=== PATIENT | female | born 1995 ===

== ENCOUNTER → 2021-09-03 12:06 | Outpatient (CLI) | payer OTHER, SELFPAY ==
--- NOTE | 2021-09-03 12:13 | DI.MG.S_ITS ---
UNILATERAL LEFT DIGITAL SCREENING MAMMOGRAM 3D/2D WITH CAD: 09/03/2021 CLINICAL: Left breast pain. No prior exams were available for comparison. The tissue of left breast is extremely dense, which lowers the sensitivity of mammography. Current study was also evaluated with a Computer Aided Detection (CAD) system. There is a focal asymmetry in the left breast at 3 o'clock middle depth. No other significant masses or calcifications are seen in the breast. IMPRESSION: INCOMPLETE: NEEDS ADDITIONAL IMAGING EVALUATION The focal asymmetry in the left breast is indeterminate. An ultrasound is recommended. This exam was interpreted at Station ID: [id number]. NOTE: For mammograms, a report in lay terms will be sent to the patient. Approximately 15% of breast malignancies will not be visualized mammographically. In the management of a palpable breast mass, a negative mammogram must not discourage biopsy of a clinically suspicious lesion. Electronically Signed By: Immanuel Cramer M.D., jr/micaela:09/03/2021 13:07:12 letter sent: Additional Imaging Needed ACR BI-RADS Category 0: Incomplete [id number]
== END ==
PROVIDERS: PCP Physician Assistant; Referring Provider Physician Assistant; Visit Provider Physician Assistant
DX: N64.4 Mastodynia (principal); N64.89 Other specified disorders of breast
CPT/HCPCS: 77063; 77067

== ENCOUNTER → 2021-09-26 15:09 | Outpatient (CLI) | payer OTHER, SELFPAY ==
--- NOTE | 2021-09-26 | DI.US.S_ITS ---
LIMITED ULTRASOUND OF LEFT BREAST AND AXILLA: 09/26/2021 CLINICAL: Patient returns today to evaluate an asymmetry in the left breast. Comparison is made to exam dated: 09/03/2021 mammogram - [facility]. Color flow and real-time ultrasound of the left breast axilla were performed. Mckeon scale images of the real-time examination were reviewed. There is a 0.7 cm x 0.4 cm x 0.4 cm lymph node in the left breast at 3 o'clock middle depth 7 cm from the nipple. This lymph node displays fatty hilum. This correlates with mammography findings. Color flow imaging demonstrates that there is no vascularity present. This was an incidental finding. No significant abnormalities were seen sonographically in the left axilla. IMPRESSION: BENIGN There is no sonographic evidence of malignancy. Benign lymph node in the left breast corresponding to the mammographic finding. No left retroareolar mass. Exam findings were conveyed to the patient. Patient is advised to monitor for significant change. Clinical follow-up as needed. Return to annual mammogram screening schedule is recommended. This exam was interpreted at Station ID: [id number]. Electronically Signed By: Navin Rosas M.D. slc/:09/26/2021 15:38:26 letter sent: Normal Exam Ultrasound BI-RADS: 2 Benign
== END ==
PROVIDERS: PCP Physician Assistant; Referring Provider Physician Assistant; Visit Provider Physician Assistant
DX: N64.4 Mastodynia (principal); N64.59 Other signs and symptoms in breast; R92.8 Other abnormal and inconclusive findings on diagnostic imaging of breast
CPT/HCPCS: 76642